=== PATIENT | female | born 1990 | race Two or more races ===

== ENCOUNTER 2024-11-18 10:21 | Emergency (ER) | payer MEDICAID, OTHER ==
[~2024-11-18] VITALS: Ht 160 cm; Wt 66.9 kg
--- NOTE | 2024-11-18 11:15 | ED.PDOC ---
History of Present Illness HPI Comments 34-year-old female came to the ER stating that she has been having nausea vomiting for the past four days. She has been able to tolerate liquids solid food. Nausea vomiting complaining of why abdominal discomfort. Her last menstrual period was few months ago. Denies any other symptoms. 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 History Social History Smoker: Non-Smoker Alcohol: Denies ETOH Use Drugs: Denies Drug Use Constitutional: denies: chills, diaphoresis, fatigue, fever, malaise, sweats, weakness, others EENTM: denies: blurred vision, double vision, ear bleeding, ear discharge, ear drainage, ear pain, ear ringing, eye pain, eye redness, hearing loss, mouth pain, mouth swelling, nasal discharge, nose bleeding, nose congestion, nose pain, photophobia, tearing, throat pain, throat swelling, voice changes, others Respiratory: denies: cough, hemoptysis, orthopnea, SOB at rest, shortness of breath, SOB with excertion, stridor, wheezing, others Cardiovascular: denies: chest pain, dizzy spells, diaphoresis, Dyspnea on exertion, edema, irregular heart beat, left arm pain, lightheadedness, palpitations, PND, syncope, others Gastrointestinal: reports: nausea, vomiting; denies: abdomen distended, abdominal pain, blood streaked bowels, constipated, diarrhea, dysphagia, difficulty swallowing, hematemesis, melena, poor appetite, poor fluid intake, rectal bleeding, rectal pain, others Genitourinary: denies: abnormal vagina bleeding, burning, dyspareunia, dysuria, flank pain, frequency, hematuria, incontinence, pain, , vagina discharge, urgency, others Neurological: denies: dizziness, fainting, headache, left sided numbness, left sided weakness, numbness, paresthesia, pre-existing deficit, right sided numbness, right sided weakness, seizure, speech problems, tingling, tremors, weakness, others Musculoskeletal: denies: back pain, gout, joint pain, joint swelling, muscle pain, muscle stiffness, neck pain, others Integumetry: denies: bruises, change in color, change in hair/nails, dryness, laceration, lesions, lumps, rash, wounds, others Allergic/Immunocompromised: denies: Difficulty Healing, Frequent Infections, Hives, Itching, others Hematologic/Lymphatic: denies: anemia, blood clots, easy bleeding, easy b ruising, swollen glands, others Endocrine: denies: excessive hunger, excessive sweating, excessive thirst, excessive urination, flushing, intolerance to cold, intolerance to heat, unexplained weight gain, unexplained weight loss, others Psychiatric: denies: anxiety, bipolar disorder, depression, hopeless, panic disorder, schizophrenia, sleepless, suicidal, others Physical Exam General Appearance: Moderate Distress HEENT: Normal ENT Inspection, Pharynx Normal, TMs Normal Neck: Full Range of Motion, Non-Tender, Normal, Normal Inspection Respiratory: Chest Non-Tender, Lungs Clear, No Accessory Muscle Use, No Respiratory Distress, Normal Breath Sounds Cardiovascular: No Edema, No JVD, No Murmur, No Gallop, Normal Peripheral Pulses, Regular Rate/Rhythm Breast Exam: Deferred Gastrointestinal: No Organomegaly, Non Tender, No Pulsatile Mass, Normal Bowel Sounds, Soft Genitalia: Deferred Pelvic: Deferred Rectal: Deferred Extremities: No calf tenderness, Normal capillary refill, Normal inspection, Normal range of motion, Non-tender, No pedal edema Musculoskeletal : Apperance: Normal Neurologic: Alert, roll slicing machine tender II-XII nml as Tested, No Motor Deficits, Normal Affect, Normal Mood, No Sensory Deficits Cerebellar Function: Normal Reflexes: Normal Skin: Dry, Normal Color, Warm Peripheral Pulses: 3+ Radial (R), 3+ Radial (L) Lymphatic: No Adenopathy Was a procedure done? Was a procedure done?: No Differential Dx Considerations may include: Gastroenteritis Electrolyte imbalance X-Ray, Labs, Meds, VS Vital Signs Date Time Temp Pulse Resp B/P (MAP) Pulse Ox O2 Delivery O2 Flow Rate FiO2 11/18/24 11:56 92 16 98 Room Air 11/18/24 11:56 92 16 132/94 (107) 97 11/18/24 10:22 97.9 101 19 117/89 99 97.9 Lab Test 11/18/24 11:17 8/3/25 11:15 11/18/24 11:11 Range/Units White Blood Count 11.3 H 4.4-10.8 10^3/uL Red Blood Count 5.08 4.0-5.20 10^6/uL Hemoglobin 16.9 H 12.2-16.2 g/dL Hematocrit 47.3 H 36.0-46.0 % Mean Corpuscular Volume 93.0 80.0-100.0 fL Mean Corpuscular Hemoglobin 33.2 H 28.0-32.0 pg Mean Corpuscular Hemoglobin Concent 35.7 32.0-36.0 g/dL Red Cell Distribution Width 13.9 11.8-14.3 % Platelet Count 382 140-450 10^3/uL Mean Platelet Volume 10.2 6.9-10.8 fL Neutrophils (%) (Auto) 75.7 37.0-80.0 % Lymphocytes (%) (Auto) 16.3 10.0-50.0 % Monocytes (%) (Auto) 7.4 0.0-12.0 % Eosinophils (%) (Auto) 0.1 0.0-7.0 % Basophils (%) (Auto) 0.5 0.0-2.0 % Neutrophils # (Auto) 8.5 1.6-8.6 10 ^3/uL Lymphocytes # (Auto) 1.8 0.4-5.4 10 ^3/uL Monocytes # (Auto) 0.8 0-1.3 10 ^3/uL Eosinophils # (Auto) 0 0-0.8 10 ^3/uL Basophils # (Auto) 0.1 0-0.2 10 ^3/uL Nucleated Red Blood Cells 0.0 % Sodium Level 137 136-145 mmol/L Potassium Level 3.2 L 3.5-5.1 mmol/L Chloride Level 97 L 98-107 mmol/L Carbon Dioxide Level 29 20-31 mmol/L Anion Gap 11 5-15 Blood Urea Nitrogen 10 9-23 mg/dL Creatinine 0.88 0.550-1.02 mg/dL Glomerular Filtration Rate Calc 88 >90 mL/min BUN/Creatinine Ratio 11.4 10.0-20.0 Serum Glucose 114 H 74-106 mg/dL Calcium Level 10.0 8.7-10.4 mg/dL Urine Test Positive Negative Urine Color Yellow Yellow Urine Clarity Clear Clear Urine pH 6.5 5.0-9.0 Urine Specific [place] 1.026 1.001-1.035 Urine Protein Trace H Negative Urine Ketones 2+ H Negative Urine Blood Negative Negative /uL Urine Nitrite Negative Negative Urine Bilirubin Negative Negative Urine Urobilinogen 6 Negative mg/dL Urine Leukocyte Esterase Negative Negative /uL Urine RBC 2 0 - 4 /hpf Urine Microscopic WBC 2 0-5 /HPF Urine Squamous Epithelial Cells Few <5 /hpf Urine Bacteria None seen None Seen /hpf Urine Mucus Few None Seen Urine Glucose Normal Normal mg/dL Current Medications Medications (Trade) Dose Ordered Sig/Jocelynn Route Start Time Stop Time Status Last Admin Ondansetron HCl (Zofran) 4 mg ONCE ONCE IV 11/18/24 11:15 11/18/24 11:17 DC 11/18/24 11:52 Sodium Chloride 1,000 ml @ 1,000 mls/hr Q1H ONCE IV 11/18/24 11:15 11/18/24 12:14 DC 11/18/24 11:51 Patient alert. Complaining of nausea vomiting. Vitals stable. Answering questions. Establish intravenous access. Was given fluids. No leg swelling. No shortness a breath. No chest pain. Saturation pristine on room air. Urinalysis shows . Denies abdominal pain. Denies cramping. Denies bleeding. Explained to the patient. Continue monitoring. Was told to follow up with her OBGYN. Was told to follow up with her primary care physician. Was told to come back if there is any problem. Time of 1ST Reevaluation: 11:12 Reevaluation 1ST: Improved Time of 2ND Reevaluation: 13:28 Reevaluation 2ND: Improved Patient Education/Counseling: Diagnosis, Treatment, Prognosis, Need For Follow Up Family Education/Counseling: No Family Present SEPSIS Sepsis Screen Date sepsis recognized/suspect: Nov 18, 2024 Time Sepsis recognized/suspect: 1025 Recent Procedure: No On Antibiotic Therapy: No Respiratory Rate >20: No Heart Rate >90: Yes Temp<36 C (96.8 F) or >38.3 C: No SBP <90 or MAP <65 mmHG: No New Acute Mental Status Change: No Is the patient on CPAP, BIPAP,: No Physician Orders Potassium Effervesent Tab (Klor-Con/Ef) (11/18/24 13:30) Vital Signs Date Time Temp Pulse Resp B/P (MAP) Pulse Ox O2 Delivery O2 Flow Rate FiO2 11/18/24 11:56 92 16 98 Room Air 11/18/24 11:56 92 16 132/94 (107) 97 11/18/24 10:22 97.9 101 19 117/89 99 97.9 Laboratory Tests Test 11/18/24 11:17 White Blood Count 11.3 10^3/uL (4.4-10.8) H Medications Medications Dose Ordered Sig/Jocelynn Route Start Time Stop Time Status Last Admin Dose Admin Ondansetron HCl 4 mg ONCE ONCE IV 11/18/24 11:15 11/18/24 11:17 DC 11/18/24 11:52 Sodium Chloride 1,000 ml @ 1,000 mls/hr Q1H ONCE IV 11/18/24 11:15 11/18/24 12:14 DC 11/18/24 11:51 Departure 1 Departure Time of Disposition: 11:14 Impression: Primary Impression: Normal Qualified Codes: Z34.90 - Encounter for supervision of normal , unspecified, unspecified trimester Disposition: 01 HOME / SELF CARE / HOMELESS Condition: Good Discharged With: Self Critical Care Note Critical Care Time?: No Stability Stability form required: No Heart Score Heart Score: Heart Score Response (Comments) Value History N/A 0 EKG N/A 0 Age N/A 0 Risk Factors N/A 0 Troponin N/A 0 Total 0 MARK PARADA MD Nov 18, 2024 11:15
[2024-11-18 11:27] LABS: Hematocrit 47.3 % (36.0-46.0); Hemoglobin 16.9 g/dL (12.2-16.2); Mean Corpuscular Hemoglobin 33.2 pg (28.0-32.0); Mean Corpuscular Volume 93.0 fL (80.0-100.0); Nucleated Red Blood Cells % 0.0 %
[2024-11-18 11:36] LABS: Sodium 137 mmol/L (136-145)
[2024-11-18 11:37] LABS: Anion Gap 11 (5-15); Calcium 10.0 mg/dL (8.7-10.4); Carbon Dioxide 29 mmol/L (20-31)
[2024-11-18 11:41] LABS: Chloride 97 mmol/L (98-107); Potassium 3.2 mmol/L (3.5-5.1)
[2024-11-18 11:42] LABS: BUN/Creatinine Ratio 11.4 (10.0-20.0); Blood Urea Nitrogen 10 mg/dL (9-23); Glucose 114 mg/dL (74-106)
[2024-11-18] MEDS: SODIUM CHLORIDE 0.9% 1,000 ML IV ONE (11:51)
[2024-11-18] MEDS: ONDANSETRON HCL 4 MG/2 ML VIAL IV ONE (11:52)
[2024-11-18 12:48] LABS: Urine Protein, UAD TRACE (Negative)
[2024-11-18 14:20] VITALS: BP 122/88; PULSE 90; RESP 20; TEMP 97.9; O2SAT 100
[2024-11-18] MEDS: POTASSIUM EFFERVESENT TAB 25 MEQ PO ONE (14:20)
== END 2024-11-18 14:23 | disposition home or self-care (01) ==
LOC: ER 10:21
DX: Z34.90 Encounter for supervision of normal pregnancy, unspecified, unspecified trimester (principal); R11.2 Nausea with vomiting, unspecified
CPT/HCPCS: 36415; 80048; 81001; 81025; 85025; 96361; 96374; 99283; J2405; J7030